=== PATIENT | female | born 1985 | race Caucasian/White ===

== ENCOUNTER 2016-09-27 10:17 | Emergency (ER) | payer OTHER | END 2016-09-27 10:51 | disposition home or self-care (01) | LOC: FER 10:17 | DX: J06.9 Acute upper respiratory infection, unspecified (principal); F17.200 Nicotine dependence, unspecified, uncomplicated | CPT/HCPCS: 99283 ==

== ENCOUNTER 2016-10-06 07:20 | Emergency (ER) | payer OTHER | END 2016-10-06 07:55 | disposition home or self-care (01) | LOC: FER 07:20 | DX: J40 Bronchitis, not specified as acute or chronic (principal); L25.9 Unspecified contact dermatitis, unspecified cause | CPT/HCPCS: 99283 ==

== ENCOUNTER 2020-12-11 16:46 | Emergency (ER) | payer OTHER ==
[~2020-12-11 16:46] MED LIST: BCP; MACROBID100 MG PO; TAMIFLU 75MG CA75 MG PO; ZOFRAN4 MG PO; [UNRECOGNIZED DRUG - OTHER]
[2020-12-11] MEDS ORDERED: PREDNISONE 20MG20 MG PO (19:39)
[2020-12-11] MEDS ORDERED: CYCLOBENZAPRINE10 MG PO (19:39)
== END 2020-12-11 19:55 | disposition home or self-care (01) ==
LOC: FER 16:46
DX: S13.4XXA Sprain of ligaments of cervical spine, initial encounter (principal); S23.3XXA Sprain of ligaments of thoracic spine, initial encounter; S33.5XXA Sprain of ligaments of lumbar spine, initial encounter; R51.9 Headache, unspecified; V49.40XA Driver injured in collision with unspecified motor vehicles in traffic accident, initial encounter; Y92.410 Unspecified street and highway as the place of occurrence of the external cause
CPT/HCPCS: 70450; 72125; 72128; 72131

== ENCOUNTER 2021-02-12 14:02 | Emergency (ER) | payer OTHER ==
[~2021-02-12 14:02] MED LIST changes: +CYCLOBENZAPRINE10 MG PO; +PREDNISONE 20MG20 MG PO
== END 2021-02-12 16:20 | disposition home or self-care (01) ==
LOC: FER 14:02
DX: S00.83XA Contusion of other part of head, initial encounter (principal); S50.02XA Contusion of left elbow, initial encounter; V43.52XA Car driver injured in collision with other type car in traffic accident, initial encounter; Y92.410 Unspecified street and highway as the place of occurrence of the external cause
CPT/HCPCS: 70450; 72125; 73060; 73080; J1885